=== PATIENT | female | born 1950 | race Caucasian/White ===

== ENCOUNTER 2017-11-09 12:58 | Observation (INO) | payer MEDICARE ==
[2017-11-08 11:23] VITALS: BMI 34.9
[~2017-11-09 12:58] MED LIST: PROPOFOL 200 MG/20 ML VIAL ONE
[2017-11-09 13:57] LABS: Anion Gap 11 mmol/L (10-20); BUN (Urea Nitrogen) 23 mg/dL (9.8-20.1); Calc. Creatinine Clearance 80 mL/min (70-130); Calcium 9.1 mg/dL (7.8-10.44); Carbon Dioxide 26 mmol/L (23-31); Chloride 105 mmol/L (98-107); Estimated GFR-MDRD 53; Glucose 136 mg/dL (80-115); Potassium 4.2 mmol/L (3.5-5.1); Sodium 138 mmol/L (136-145)
[2017-11-09] MEDS ORDERED: CEFAZOLIN/Water 2 GM/20 ML SYRINGE ONE (15:20)
[2017-11-09] MEDS ORDERED: Fentanyl 100 MCG/2 ML VIAL ONE ×3 (15:39→17:01)
[2017-11-09] MEDS ORDERED: Bupivacaine HCl 0.5%/Epinephrine 1:200,000/PF 30 ml Vial ONE (16:12)
--- NOTE | 2017-11-09 16:34 | RAD ---
RIGHT ANKLE INTRAOPERATIVE FLUOROSCOPY TWO VIEWS: 11/09/17 HISTORY: Hardware removal. FINDINGS: Intraoperative fluoroscopy was provided for hardware removal as performed by Dr. Dickinson. Single sp ot fluoroscopic images show lucencies through the distal fibula where screws have been removed. Fluoro time = 11 seconds. POS: KATHERINE
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
[2017-11-09] MEDS ORDERED: hydrALAZINE 20 MG/ML VIAL ONE (17:09)
[2017-11-09] MEDS ORDERED: Bisacodyl 5 MG TAB PO PRN (17:50)
[2017-11-09] MEDS ORDERED: Acetaminophen 325 MG TAB PO PRN (17:50)
[2017-11-09] MEDS ORDERED: Benzonatate 100 MG CAP PO PRN (17:50)
[2017-11-09] MEDS ORDERED: Labetalol HCl 100 MG/20 ML VIAL SLOW IVP PRN (17:50)
[2017-11-09] MEDS ORDERED: Senokot 8.6 MG TAB PO PRN (17:50)
[2017-11-09] MEDS ORDERED: Lorazepam 2 MG/ML VIAL SLOW IVP PRN (17:50)
[2017-11-09] MEDS ORDERED: Diabetic Tussin 200 MG/10 ML UDCUP PO PRN (17:50)
[2017-11-09] MEDS ORDERED: Ondansetron HCl/PF 4 MG/2 ML Vial IVP PRN (17:50)
[2017-11-09] MEDS ORDERED: hydrALAZINE 20 MG/ML VIAL SLOW IVP PRN (17:50)
[2017-11-09] MEDS ORDERED: Dextrose 50% Abboject 50 ML SYRINGE SLOW IVP PRN (17:50)
[2017-11-09] MEDS ORDERED: HumaLOG 300 UNITS/3 ML VIAL SC PRN ×2 (17:50)
[2017-11-09] MEDS ORDERED: Loratadine 10 MG TAB PO PRN (17:50)
[2017-11-09] MEDS ORDERED: Calcium Carbonate 500 MG ChewTAB PO PRN (17:50)
[2017-11-09] MEDS ORDERED: cloNIDine 0.1 MG TAB PO PRN (17:50)
[2017-11-09] MEDS ORDERED: Mag-Al 1200 mg/1200 mg/30 ML UDCUP PO PRN (17:50)
[2017-11-09] MEDS ORDERED: Dextrose 5% in Water 1,000 ML IV PRN (17:50)
[2017-11-09] MEDS ORDERED: Ketorolac Tromethamine 30 MG/ML VIAL ONE (17:54)
[2017-11-09] MEDS ORDERED: Aspirin 81 mg Enteric Coated Tablet PO SCH (18:00)
[2017-11-09] MEDS ORDERED: traMADol HCl 50 MG TAB PO PRN (18:13)
[2017-11-09] MEDS ORDERED: Fentanyl 100 MCG/2 ML VIAL SLOW IVP PRN (18:13)
[2017-11-09] MEDS ORDERED: HYDROcodone/Acetaminophen 5/325 mg Tablet PO PRN (18:13)
[2017-11-09] MEDS ORDERED: Communication Order-Pharmacy FS SCH (18:15)
[2017-11-09] MEDS ORDERED: Morphine 4 MG/ML VIAL ONE (18:22)
[2017-11-09 18:27] LABS: #Eosinphils 0.1 thou/uL (0.0-0.7); #Monocytes 0.2 thou/uL (0.11-0.59); #Neutrophils 4.8 thou/uL (1.40-6.50); %Basophils 0.6 % (0.0-1.0); %Eosinophils 2.1 % (0.0-10.0); %Lymphocytes 15.5 % (21.0-51.0); %Monocytes 3.7 % (0.0-10.0); %Neutrophils 78.1 % (42.0-75.0); Hemoglobin 11.8 g/dL (12.0-16.0); Mean Corpuscular HGB CONC 34.3 g/dL (32.0-36.0); Mean Corpuscular Hemoglobin 29.8 pg (27.0-31.0); Mean Corpuscular Volume 87.1 fl (81.0-99.0); Mean Platelet Volume 7.8 fL (7.4-10.4); Platelet Count 188 thou/uL (130-400); RBC Distribution Width 12.6 % (11.5-14.5); Red Blood Cell (RBC) Count 3.96 mill/uL (4.20-5.40); White Blood Cell (WBC) Count 6.1 thou/uL (4.8-10.8)
--- NOTE | 2017-11-09 18:36 | RAD ---
SINGLE VIEW OF THE CHEST: 11/09/17 COMPARISON: None. HISTORY: Chest pain. FINDINGS: Single view of the chest shows a normal sized cardiomediastinal silhouette. There is no evidence of c onsolidation, mass, or pleural effusion. The bones are unremarkable. IMPRESSION: No evidence of acute cardiopulmonary disease. POS: C
[2017-11-09] MEDS ORDERED: Aspirin 325 MG TAB PO SCH (18:37)
[2017-11-09 18:49] LABS: ALT (SGPT) 24 U/L (8-55); AST (SGOT) 25 U/L (5-34); Alkaline Phosphatase 54 U/L (40-150); Anion Gap 12 mmol/L (10-20); BUN (Urea Nitrogen) 21 mg/dL (9.8-20.1); Bilirubin, Total 0.4 mg/dL (0.2-1.2); Calc. Creatinine Clearance 79 mL/min (70-130); Calcium 9.2 mg/dL (7.8-10.44); Carbon Dioxide 26 mmol/L (23-31); Chloride 104 mmol/L (98-107); Estimated GFR-MDRD 52; Globulin 2.6 g/dL (2.4-3.5); Glucose 120 mg/dL (80-115); Protein, Total 6.6 g/dL (6.0-8.3); Sodium 138 mmol/L (136-145)
[2017-11-09 18:53] LABS: CKMB 1.8 ng/mL (0-6.6); Troponin I Less than 0.010 ng/mL (< 0.028)
--- NOTE | 2017-11-09 19:30 | PDOC.PN ---
- Subjective Encounter Start Date: 11/09/17 Encounter Start Time: 19:28 Subjective: consulted for chest pain & uncontrolled HTN.Pt seen & examined.chart review -: s/p hardware removal l ankle.woke up w chest/epigastric pain -: still having it on & off w some SOB.no recent illnesses - Objective MAR Reviewed: Yes Vital Signs & Weight: Vital Signs (12 hours) Temp Pulse Resp BP Pulse Ox 11/09/17 18:55 97.7 F 69 18 194/79 H 98 Weight Weight 210 lb Result Diagrams: 11/09/17 18:17 11/09/17 18:17 Additional Labs: Accuchecks 11/09/17 13:33 POC Glucose 130 H Laboratory Tests 11/09/17 11/09/17 11/09/17 18:17 18:17 18:17 D-Dimer Less than 0.27 L Total Bilirubin 0.4 AST 25 ALT 24 Alkaline Phosphatase 54 CK-MB (CK-2) 1.8 Troponin I Less than 0.010 B-Natriuretic Peptide 11/09/17 18:17 D-Dimer Total Bilirubin AST ALT Alkaline Phosphatase CK-MB (CK-2) Troponin I B-Natriuretic Peptide 224.2 H Radiology Reviewed by me: Yes (CXR-no acute changes.no edema/infiltrate) EKG Reviewed by me: Yes (No acute changes ,NSR) Phys Exam - Physical Examination Constitutional: NAD still somewhat forgetful from anesthesia HEENT: PERRLA, moist MMs, sclera anicteric, oral pharynx no lesions Neck: no nodes, no JVD, supple, full ROM Respiratory: no wheezing, no rales, no rhonchi, clear to auscultation bilateral Cardiovascular: RRR, no significant murmur, no rub Gastrointestinal: soft, non-tender, no distention, positive bowel sounds no RUQ tenderness Musculoskeletal: no edema, pulses present Neurological: non-focal, normal sensation, moves all 4 limbs Psychiatric: normal affect, A&O x 3 Skin: no rash Dx/Plan (1) Chest pain Code(s): R07.9 - CHEST PAIN, UNSPECIFIED Status: Acute (2) Hypertensive urgency Code(s): I16.0 - HYPERTENSIVE URGENCY Status: Acute (3) DM2 (diabetes mellitus, type 2) Status: Chronic (4) Morbid obesity Code(s): E66.01 - MORBID (SEVERE) OBESITY DUE TO EXCESS CALORIES Status: Chronic (5) HLD (hyperlipidemia) Code(s): E78.5 - HYPERLIPIDEMIA, UNSPECIFIED Status: Chronic (6) COPD (chronic obstructive pulmonary disease) Status: Chronic - Plan plan discussed w/ family, PT/OT, DVT proph w/lovenox, DVT proph w/SCDs serial troponins.repeat EKG in am.pt reports recent stress test 1 yr ago -: will get records from PCP's office.cont full dose ASA -: more epigastric than chest pain.joseley GERD. add PPI -: add ISS w Accuchecks.DC metformin-pt allergic -: restart home meds for BP.add prn meds.tele monitoring * .D dimer NL.dedrick PE.add DVT prophylaxis * am labs * diabetic diet IM team will follow.HD stable for now * Review of Systems - Review of Systems Constitutional: weakness. negative: fever, chills, sweats, malaise, other Respiratory: Shortness of Breath. negative: Cough, Dry, Hemoptysis, SOB with Excertion, Pleuritic Pain, Sputum, Wheezing Cardiovascular: negative: chest pain, palpitations, orthopnea, paroxysmal nocturnal dyspnea, edema, light headedness, other Gastrointestinal: Abdominal Pain (epigastric). negative: Nausea, Vomiting, Diarrhea, Constipation, Melena, Hematochezia, Other Genitourinary: negative: Dysuria, Frequency, Incontinence, Hematuria, Retention , Other Musculoskeletal: negative: Neck Pain, Shoulder Pain, Arm Pain, Back Pain, Hand Pain, Leg Pain, Foot Pain, Other Skin: negative: Rash, Lesions, Deni, Bruising, Other Neurological: negative: Weakness, Numbness, Incoordination, Change in Speech, Confusion, Seizures, Other - Medications/Allergies Allergies/Adverse Reactions: Allergies Allergy/AdvReac Type Severity Reaction Status Date / Time codeine Allergy Verified 11/08/17 11:24 lisinopril Allergy Verified 11/08/17 11:24 ranitidine HCl [From Zantac] Allergy Verified 11/08/17 11:24 Medications: Current Medications Acetaminophen (Tylenol) 650 mg PO Q4H PRN PRN Reason: Headache/Fever or Mild Pain Hydrocodone Bitart/Acetaminophen ([place] 5/325) 1 tab PO Q4H PRN PRN Reason: Moderate Pain (4-6) Al Hydroxide/Mg Hydroxide (Maalox) 15 ml PO Q4H PRN PRN Reason: Heartburn or Indigestion Aspirin (Ecotrin) 325 mg PO DAILY [facility] Aspirin (Aspirin) 325 mg PO NOW [facility] Stop: 11/09/17 21:00 Benzonatate (Tessalon) 100 mg PO Q4H PRN PRN Reason: Cough Bisacodyl (Dulcolax) 10 mg PO DAILYPRN PRN PRN Reason: Constipation Calcium Carbonate (Tums) 1,000 mg PO Q4H PRN PRN Reason: Heartburn or Indigestion Clonidine (Catapres) 0.1 mg PO Q4H PRN PRN Reason: Systolic BP > 160 Dextrose/Water (Dextrose 50%) 25 gm SLOW IVP PRN PRN PRN Reason: Hypoglycemia Enoxaparin Sodium (Lovenox) 40 mg SC 0900 [facility] Fentanyl (Sublimaze) 50 mcg SLOW IVP Q30M PRN PRN Reason: Severe breakthrough pain Glipizide (Glucotrol) 5 mg PO QAM-[facility] Glucagon (Glucagon) 1 mg IM PRN PRN PRN Reason: Hypoglycemia Guaifenesin (Robitussin Sf) 200 mg PO Q4H PRN PRN Reason: Cough Hydralazine HCl (Apresoline) 10 mg SLOW IVP Q4H PRN PRN Reason: Systolic BP > 170 Dextrose/Water (D5w) 1,000 mls @ 0 mls/hr IV .Q0M PRN; As Directed PRN Reason: Hypoglycemia Insulin Human Lispro (Humalog) 0 units SC .MODERATE SLIDING SC PRN PRN Reason: Moderate Correctional Scale Insulin Human Lispro (Humalog) 0 units SC .BEDTIME SLIDING SC PRN PRN Reason: Bedtime Correctional Scale Labetalol HCl (Normodyne) 20 mg SLOW IVP Q4H PRN PRN Reason: Systolic BP > 180 Loratadine (Claritin) 10 mg PO HS [facility] Lorazepam (Ativan) 1 mg SLOW IVP Q4H PRN PRN Reason: Anxiety/Agitation Losartan Potassium (Cozaar) 50 mg PO QAM [facility] Miscellaneous Information (Communication Order-Pharmacy) 1 each FS ONE [facility] Ondansetron HCl (Zofran) 4 mg IVP Q6H PRN PRN Reason: Nausea/Vomiting Pantoprazole Sodium (Protonix) 40 mg PO QAM COY Pantoprazole Sodium (Protonix) 40 mg PO ONE ONE Stop: 11/09/17 19:28 Potassium Chloride (Slow-K 8 Meq) 8 meq PO QAM-[facility] Senna (Senokot) 2 tab PO HSPRN PRN PRN Reason: Constipation Sertraline HCl (Zoloft) 100 mg PO QAM [facility] Sodium Chloride (Flush - Normal Saline) 10 ml IVF PRN PRN PRN Reason: Saline Flush Sotalol HCl (Betapace) 80 mg PO BID [facility] Tetanus/Diphtheria Toxoids Adsorbed (Tenivac Syringe) 0.5 ml IM ONE [facility] Stop: 11/09/17 20:01 Thiamine HCl (Thiamine) 250 mg PO DAILY COY Tramadol HCl (Ultram) 50 mg PO Q6H PRN PRN Reason: Mild Pain (1-3) Vitamin B Complex/Vit C/Folic Acid (Nephro-Liz Tablet) 1 tab PO DAILY [facility]
[2017-11-09] MEDS ORDERED: TETANUS AND DIPHTHERIA TOX/PF 0.5 ML DISP.SYRIN IM SCH (20:00)
[2017-11-09] MEDS: Sotalol HCl 80 MG TAB PO SCH (20:38)
[2017-11-09] MEDS ORDERED: Loratadine 10 MG TAB PO SCH (21:00)
[2017-11-09 21:23] LABS: Troponin I Less than 0.010 ng/mL (< 0.028)
[2017-11-10 01:07] LABS: Troponin I Less than 0.010 ng/mL (< 0.028)
[2017-11-10] MEDS ORDERED: glipiZIDE 5 MG TAB PO SCH (08:00)
[2017-11-10] MEDS ORDERED: metFORMIN 500 MG TAB PO SCH (08:00)
[2017-11-10] MEDS ORDERED: Potassium Chloride 8 MEQ TAB PO SCH (08:00)
[2017-11-10 08:21] VITALS: BP 140/65; TEMP 97.4
[2017-11-10] MEDS ORDERED: PROVENTIL INHALER 6.7 G (200 INHALATIONS) INH PRN (08:23)
--- NOTE | 2017-11-10 08:27 | PDOC.PN ---
- Subjective Encounter Start Date: 11/10/17 Encounter Start Time: 08:26 Subjective: feels well. forgetful and denies any chest pain now -: agrees that she has GERd & not been able to afford meds. -: no nausea/vomiting. - Objective MAR Reviewed: Yes Vital Signs & Weight: Vital Signs (12 hours) Temp Pulse Resp BP BP BP Pulse Ox 11/10/17 08:14 97.4 F L 58 L 20 11/10/17 07:30 98.1 F 60 12 140/65 96 11/10/17 04:10 97.4 F L 58 L 20 137/76 99 11/10/17 00:00 97.7 F 55 L 16 160/65 H 98 11/09/17 23:12 97.9 F 58 L 18 162/67 H 98 11/09/17 21:00 97.8 F 67 14 167/68 H 98 11/09/17 20:38 82 150/65 H Weight Weight 210 lb I&O: 11/09/17 11/10/17 11/11/17 06:59 06:59 06:59 Intake Total 950 Balance 950 Result Diagrams: 11/09/17 18:17 11/09/17 18:17 Additional Labs: Accuchecks 11/10/17 11/09/17 11/09/17 05:35 20:47 13:33 POC Glucose 180 H 241 H 130 H Laboratory Tests 11/09/17 11/09/17 11/10/17 18:17 20:53 00:17 Troponin I Less than 0.010 Less than 0.010 Less than 0.010 Phys Exam - Physical Examination Constitutional: NAD HEENT: PERRLA, moist MMs, sclera anicteric, oral pharynx no lesions Neck: no nodes, no JVD, supple, full ROM Respiratory: no wheezing, no rales, no rhonchi, clear to auscultation bilateral Cardiovascular: RRR, no significant murmur, no rub Gastrointestinal: soft, non-tender, no distention, positive bowel sounds Musculoskeletal: no edema, pulses present Neurological: non-focal, normal sensation, moves all 4 limbs Psychiatric: normal affect, A&O x 3 Skin: no rash Dx/Plan (1) Chest pain Code(s): R07.9 - CHEST PAIN, UNSPECIFIED Status: Acute Comment: no evidence of ACS.Yusuf Gerd (2) Hypertensive urgency Code(s): I16.0 - HYPERTENSIVE URGENCY Status: Resolved (3) DM2 (diabetes mellitus, type 2) Status: Chronic (4) Morbid obesity Code(s): E66.01 - MORBID (SEVERE) OBESITY DUE TO EXCESS CALORIES Status: Chronic (5) HLD (hyperlipidemia) Code(s): E78.5 - HYPERLIPIDEMIA, UNSPECIFIED Status: Chronic (6) COPD (chronic obstructive pulmonary disease) Status: Chronic - Plan DVT proph w/SCDs pt both on BB & CCB w low HR.reduce dose of CCB.OP referral to cardiology -: no indication of ACS -: PPI prescription given -: pt had nebulizer at home. -: [facility]. * .suspect dementia onset ,either vascular or Alzheimer * OK to DC from IM stand point Review of Systems - Review of Systems Constitutional: negative: fever, chills, sweats, weakness, malaise, other ENT: negative: Ear Pain, Ear Discharge, Nose Pain, Nose Discharge, Nose Congestion, Mouth Pain, Mouth Swelling, Throat Pain, Throat Swelling, Other Respiratory: negative: Cough, Dry, Shortness of Breath, Hemoptysis, SOB with Excertion, Pleuritic Pain, Sputum, Wheezing Cardiovascular: negative: chest pain, palpitations, orthopnea, paroxysmal nocturnal dyspnea, edema, light headedness, other Gastrointestinal: Other (gerd). negative: Nausea, Vomiting, Abdominal Pain, Diarrhea, Constipation, Melena, Hematochezia Genitourinary: negative: Dysuria, Frequency, Incontinence, Hematuria, Retention , Other Musculoskeletal: negative: Neck Pain, Shoulder Pain, Arm Pain, Back Pain, Hand Pain, Leg Pain, Foot Pain, Other Neurological: negative: Weakness, Numbness, Incoordination, Change in Speech, Confusion, Seizures, Other - Medications/Allergies Allergies/Adverse Reactions: Allergies Allergy/AdvReac Type Severity Reaction Status Date / Time codeine Allergy Verified 11/08/17 11:24 lisinopril Allergy Verified 11/08/17 11:24 metformin Allergy Diarrhea Verified 11/09/17 19:55 ranitidine HCl [From Zantac] Allergy Verified 11/08/17 11:24 Medications: Current Medications Acetaminophen (Tylenol) 650 mg PO Q4H PRN PRN Reason: Headache/Fever or Mild Pain Hydrocodone Bitart/Acetaminophen ([place] 5/325) 1 tab PO Q4H PRN PRN Reason: Moderate Pain (4-6) Al Hydroxide/Mg Hydroxide (Maalox) 15 ml PO Q4H PRN PRN Reason: Heartburn or Indigestion Albuterol Sulfate (Proventil Hfa) 1 puff INH Q4HR PRN PRN Reason: SOB &/or Wheezing Albuterol/Ipratropium (Duoneb) 3 ml NEB Q4H PRN PRN Reason: SOB &/or Wheezing Aspirin (Ecotrin) 325 mg PO DAILY CO[facility] Benzonatate (Tessalon) 100 mg PO Q4H PRN PRN Reason: Cough Bisacodyl (Dulcolax) 10 mg PO DAILYPRN PRN PRN Reason: Constipation Calcium Carbonate (Tums) 1,000 mg PO Q4H PRN PRN Reason: Heartburn or Indigestion Clonidine (Catapres) 0.1 mg PO Q4H PRN PRN Reason: Systolic BP > 160 Dextrose/Water (Dextrose 50%) 25 gm SLOW IVP PRN PRN PRN Reason: Hypoglycemia Diltiazem HCl (Cardizem Cd) 180 mg PO DAILY CO[facility] Enoxaparin Sodium (Lovenox) 40 mg SC 0900 [facility] Fentanyl (Sublimaze) 50 mcg SLOW IVP Q30M PRN PRN Reason: Severe breakthrough pain Furosemide (Lasix) 40 mg PO QAM CO[facility] Glipizide (Glucotrol) 5 mg PO QAM-[facility] Glucagon (Glucagon) 1 mg IM PRN PRN PRN Reason: Hypoglycemia Guaifenesin (Robitussin Sf) 200 mg PO Q4H PRN PRN Reason: Cough Hydralazine HCl (Apresoline) 10 mg SLOW IVP Q4H PRN PRN Reason: Systolic BP > 170 Dextrose/Water (D5w) 1,000 mls @ 0 mls/hr IV .Q0M PRN; As Directed PRN Reason: Hypoglycemia Insulin Human Lispro (Humalog) 0 units SC .MODERATE SLIDING SC PRN PRN Reason: Moderate Correctional Scale Last Admin: 11/10/17 05:37 Dose: 2 unit Insulin Human Lispro (Humalog) 0 units SC .BEDTIME SLIDING SC PRN PRN Reason: Bedtime Correctional Scale Labetalol HCl (Normodyne) 20 mg SLOW IVP Q4H PRN PRN Reason: Systolic BP > 180 Loratadine (Claritin) 10 mg PO HS [facility] Last Admin: 11/09/17 20:39 Dose: 10 mg Lorazepam (Ativan) 1 mg SLOW IVP Q4H PRN PRN Reason: Anxiety/Agitation Losartan Potassium (Cozaar) 50 mg PO QAM [facility] Miscellaneous Information (Communication Order-Pharmacy) 1 each FS ONE [facility] Stop: 11/19/17 18:16 Non-Formulary Medication (Atorvastatin Calcium [Atorvastatin Calcium]) 80 mg PO HS [facility] Non-Formulary Medication (B Complex W-C No.20/Folic Acid [Renal Caps Softgel]) 1 cap PO DAILY [facility] Non-Formulary Medication (Canagliflozin [Invokana]) 100 mg PO DAILY [facility] Non-Formulary Medication (Cholecalciferol (Vitamin D3) [D3 Dots]) 8,000 unit PO DAILY [facility] Non-Formulary Medication (Fluticasone Propionate [Flovent Diskus]) 50 mcg IH DAILY [facility] Non-Formulary Medication (Fluticasone/Salmeterol [Advair Diskus 250/50]) 1 inh IH BID [facility] Ondansetron HCl (Zofran) 4 mg IVP Q6H PRN PRN Reason: Nausea/Vomiting Pantoprazole Sodium (Protonix) 40 mg PO QAM [facility] Potassium Chloride (Slow-K 8 Meq) 8 meq PO QAM-[facility] Senna (Senokot) 2 tab PO HSPRN PRN PRN Reason: Constipation Sertraline HCl (Zoloft) 100 mg PO QAM [facility] Sodium Chloride (Flush - Normal Saline) 10 ml IVF PRN PRN PRN Reason: Saline Flush Sotalol HCl (Betapace) 80 mg PO BID [facility] Last Admin: 11/09/17 20:38 Dose: 80 mg Thiamine HCl (Thiamine) 250 mg PO DAILY CO[facility] Tramadol HCl (Ultram) 50 mg PO Q6H PRN PRN Reason: Mild Pain (1-3) Vitamin B Complex/Vit C/Folic Acid (Nephro-Liz Tablet) 1 tab PO DAILY [facility]
[2017-11-10] MEDS ORDERED: Non-Formulary Item 1 EACH (Fluticasone/Salmeterol [Advair Diskus 250/50] 1 INH) IH SCH (09:00)
[2017-11-10] MEDS ORDERED: CANAGLIFLOZIN 100 MG PO SCH (09:00)
[2017-11-10] MEDS ORDERED: Aspirin 325 mg Enteric Coated Tablet PO SCH (09:00)
[2017-11-10] MEDS ORDERED: Folic Acid/Vit B Comp W-C PO SCH (09:00)
[2017-11-10] MEDS ORDERED: Enoxaparin Sodium 40 MG/0.4 ML SYRINGE SC SCH (09:00)
[2017-11-10] MEDS ORDERED: Fish Oil 1,000 MG CAP PO SCH (09:00)
[2017-11-10] MEDS ORDERED: Stress 600 With Zinc 1 TAB PO SCH (09:00)
[2017-11-10] MEDS ORDERED: Furosemide 40 MG TAB PO SCH (09:00)
[2017-11-10] MEDS ORDERED: [UNRECOGNIZED DRUG - REMARK] PO SCH (09:00)
[2017-11-10] MEDS ORDERED: Non-Formulary Item 1 EACH (Fluticasone Propionate [Flovent Diskus] 50 MCG) IH SCH (09:00)
[2017-11-10] MEDS ORDERED: Losartan 25 MG TAB PO SCH (09:00)
[2017-11-10] MEDS: Sotalol HCl 80 MG TAB PO SCH (09:36)
[2017-11-10] MEDS ORDERED: Mometasone/Formoterol 120 PUFF INHALER INH SCH (18:30)
[2017-11-10] MEDS ORDERED: Mometasone 100 MCG HFA INHALER INH SCH (18:30)
[2017-11-10] MEDS ORDERED: Atorvastatin Calcium 40 MG TAB PO SCH (21:00)
--- NOTE | 2017-11-20 13:06 | EKG ---
Test Reason : PREOP Blood Pressure : / mmHG Vent. Rate : 057 BPM Atrial Rate : 057 BPM P-R Int : 194 ms QRS Dur : 106 ms QT Int : 450 ms P-R-T Axes : -09 -21 041 degrees QTc Int : 438 ms Sinus bradycardia Moderate voltage criteria for LVH, may be normal variant Borderline ECG When compared with ECG of 14-SEP-2013 19:27, Nonspecific T wave abnormality has replaced inverted T waves in Inferior leads Nonspecific T wave abnormality no longer evident in Anterolateral leads Confirmed by DR. George JURADO ([id number]) on 11/20/2017 1:06:11 PM Referred By: JUSTIN Confirmed By:DR. George JURADO
--- NOTE | 2017-11-20 13:09 | EKG ---
Test Reason : Blood Pressure : / mmHG Vent. Rate : 062 BPM Atrial Rate : 062 BPM P-R Int : 186 ms QRS Dur : 112 ms QT Int : 454 ms P-R-T Axes : 048 -27 053 degrees QTc Int : 460 ms Sinus rhythm with occasional Premature ventricular complexes Minimal voltage criteria for LVH, may be normal variant Septal infarct , age undetermined Abnormal ECG No previous ECGs available Confirmed by DR. George JURADO ([id number]) on 11/20/2017 1:09:19 PM Referred By: KAT Confirmed By:DR. George JURADO
--- NOTE | 2017-11-20 13:14 | EKG ---
Test Reason : Blood Pressure : / mmHG Vent. Rate : 060 BPM Atrial Rate : 060 BPM P-R Int : 182 ms QRS Dur : 110 ms QT Int : 466 ms P-R-T Axes : 048 -14 028 degrees QTc Int : 466 ms Normal sinus rhythm Moderate voltage criteria for LVH, may be normal variant Cannot rule out Septal infarct , age undetermined Abnormal ECG When compared with ECG of 09-NOV-2017 13:37, (Unconfirmed) Minimal criteria for Septal infarct are now Present Confirmed by DR. George JURADO ([id number]) on 11/20/2017 1:13:56 PM Referred By: LUCITA Confirmed By:DR. George JURADO
== END 2017-11-10 13:52 | disposition home or self-care (01) ==
LOC: SDC 12:58 → 2SW 18:06
PROVIDERS: ADMIT Orthopaedic Surgery; ATTEND Orthopaedic Surgery
PROC: 0SPF04Z Removal of Internal Fixation Device from Right Ankle Joint, Open Approach (ICD-10-PCS; principal; 2017-11-09)
PROC: 0QPN04Z Removal of Internal Fixation Device from Right Metatarsal, Open Approach (ICD-10-PCS; 2017-11-09)
DX: T84.84XA Pain due to internal orthopedic prosthetic devices, implants and grafts, initial encounter (principal); E11.65 Type 2 diabetes mellitus with hyperglycemia; I48.0 Paroxysmal atrial fibrillation; I16.0 Hypertensive urgency; I12.9 Hypertensive chronic kidney disease with stage 1 through stage 4 chronic kidney disease, or unspecified chronic kidney disease; N18.3 Chronic kidney disease, stage 3 (moderate); E78.5 Hyperlipidemia, unspecified; J44.9 Chronic obstructive pulmonary disease, unspecified; K21.9 Gastro-esophageal reflux disease without esophagitis; I25.10 Atherosclerotic heart disease of native coronary artery without angina pectoris; F41.9 Anxiety disorder, unspecified; E66.01 Morbid (severe) obesity due to excess calories; F32.9 Major depressive disorder, single episode, unspecified; Z79.82 Long term (current) use of aspirin; Z79.4 Long term (current) use of insulin; Z79.899 Other long term (current) drug therapy; Z88.5 Allergy status to narcotic agent; Z88.8 Allergy status to other drugs, medicaments and biological substances; Z68.34 Body mass index [BMI] 34.0-34.9, adult
CPT/HCPCS: 20680 ×2; 71045; 73600; 76000; 80048; 80053; 82553; 82962 ×2; 83880; 84484 ×3; 85025; 85379; 93005 ×2; 96372; 96374 ×2; G0378; 36415; 36416; 93010; J0360; J0670; J1650; J1885; J2270; J2704; J3010

== ENCOUNTER 2018-01-09 13:32 | Outpatient (CLI) | payer MEDICARE | END 2018-01-09 13:33 | disposition home or self-care (01) | LOC: MWLC DTY 13:32 | PROVIDERS: ATTEND Internal Medicine Geriatric Medicine | DX: E11.65 Type 2 diabetes mellitus with hyperglycemia (principal) | CPT/HCPCS: 97802 ==